=== PATIENT | male | born 2000 | race Two or more races ===

== ENCOUNTER 2020-09-15 11:59 | Emergency (ER) | payer BC, SELFPAY ==
[2020-09-15 12:09] VITALS: BP 113/70; PULSE 59; RESP 17; TEMP 36.8; O2SAT 100; BMI 17.6
--- NOTE | 2020-09-15 12:14 | ED.DENTAL ---
HPI - Dental/Oral General Chief complaint: Dental/Oral Stated complaint: tooth ache Time Seen by Provider: 09/15/20 12:14 Source: patient Mode of arrival: ambulatory Limitations: no limitations History of Present Illness HPI Narrative: 20 y/o male presenting with left upper dental pain for the last 1 week. He has a known cracked tooth for a long time that he never got taken care of. He reports it started hurting about 1 week ago. Worse with cold and hot foods and drinks. No fever, chills, facial swelling or ear pain. He has been taking 800 mg Ibuprofen around the clock without improvement. Related Data Previous Rx's Medication Instructions Recorded hydrocodone-acetaminophen [Mathews] 1 tab PO Q6H PRN #10 tab 09/15/20 ibuprofen 600 mg PO Q8H PRN #20 tab 09/15/20 penicillin V potassium 500 mg PO BID #14 tab 09/15/20 Allergies Allergy/AdvReac Type Severity Reaction Status Date / Time No Known Allergies Allergy Verified 09/15/20 12:10 Review of Systems Review of Systems: Constitutional: No Fever, No Chills ENT/Mouth: No sore throat, No Rhinorrhea, No Swallowing Difficulty, +toothache Cardiovascular: No Chest Pain, No SOB Respiratory: No Cough, No Sputum Gastrointestinal: + Nausea, No Vomiting, No abdominal Pain Musculoskeletal: No joint pain, No Myalgias Skin: No Skin Lesions, No rash Neuro: + Headache PMFSH Past Medical History Attestation statement: The following information was validated with the patient. Social History Social History Advance Directives: No Advance Directives Information Provided: No Physical Exam Vital Signs: Vital Signs: Last Vital Signs Temp 98.2 F 09/15/20 12:09 Pulse 59 09/15/20 12:09 Resp 17 09/15/20 12:09 BP 113/70 09/15/20 12:09 Pulse Ox 100 09/15/20 12:09 Body Mass Index 17.6 Appearance: Alert. Oriented X3. No acute distress. HEENT: normal facial inspection, no swelling. normal neck inspection, supple, no LAD. Upper left tooth #20 with large missing piece with pulp exposued. mild lingual gingival tenderness without swelling or palpable abscess. uvula midline, no tonsillar swelling. CVS: Normal heart rate and rhythm. Pulses normal. Respiratory: No respiratory distress. Extremities: no LE edema Neuro: Oriented X 3. No motor deficit. No sensory deficit. Course Course Course Narrative: 20 y/o male presenting with dental pain due to fracutred tooth. No signs of active infection or abscess. Given pulp exposure will give preventative PCN and short course of oral narcotics until he can be evaluated by his dentist early this week. Stable for discharge. MDM - Dental/Oral Differential Diagnosis Differential diagnosis: Likely gingival abscess, dental caries, toothache, dental abscess and fracture of tooth Critical Care Time Critical Care Time Critical Care Time: No Discharge Plan Discharge Clinical Impression: Fracture of tooth Qualifiers: Encounter type: initial encounter Fracture type: closed Qualified Code(s): S02.5XXA - Fracture of tooth (traumatic), initial encounter for closed fracture Patient Disposition: Home, Self-Care Instructions: Acute Dental Trauma (ED), Toothache (ED) Additional Instructions: Follow up with your dentist SUZANNE. Use topical Orajel or numbing agents as needed for pain. Take prescribed medications as needed for pain. Prescriptions: New hydrocodone-acetaminophen [Mathews] 5-325 mg tablet 1 tab PO Q6H PRN (Reason: pain) Qty: 10 RF: 0 ibuprofen 600 mg tablet 600 mg PO Q8H PRN (Reason: pain) Qty: 20 RF: 0 penicillin V potassium 500 mg tablet 500 mg PO BID Qty: 14 RF: 0
== END 2020-09-15 12:51 | disposition home or self-care (01) ==
PROVIDERS: Emergency Provider Internal Medicine
DX: S02.5XXA Fracture of tooth (traumatic), initial encounter for closed fracture (principal); K08.89 Other specified disorders of teeth and supporting structures; X58.XXXA Exposure to other specified factors, initial encounter; Y93.9 Activity, unspecified; Y92.9 Unspecified place or not applicable; Y99.9 Unspecified external cause status; Z79.899 Other long term (current) drug therapy
CPT/HCPCS: 99283